=== PATIENT | male | born 1970 | race Caucasian/White ===

== ENCOUNTER → 2016-08-28 | Outpatient (CLI) | payer BC ==
[~2016-08-28] MED LIST: AGM875T PO; BPR150TCR PO; HYDR-757 PO; IBP800T PO; NAPR-243 PO; ORPH100T PO
--- OUTSIDE RECORDS SUMMARY | 2016-08-28 09:46 | XMS REPORT | Continuity of Care Document ---
Author Author [facility] Organization [facility] Address Unknown Phone Unavailable Care Team Providers Care Councilperson Name Role Phone KAVITHA TOMLINSON MD PCP Insurance Providers Payer Name Policy Number Subscriber Name Relationship [facility] [id number] Dave Archuleta Self / Same As Patient Advance Directives Directive Response Recorded Date/Time Advance Directives No 03/08/15 9:58am Health Care Power of [place] Machine Operator No 03/08/15 9:58am Organ Donor Yes 03/08/15 9:58am Resuscitation Status Full Code 03/08/15 9:58am Problems Medical Problems Problem Onset Date Status Biliary colic Unknown Active Abdominal pain Unknown Active Dog bite of left hand Unknown Active Sprain or strain of cervical spine Unknown Active Sprain or strain of cervical spine Unknown Active Medications Medication Dose Route Sig Days/Qty Instructions Order Date Discontinued Date Status Ibuprofen 800 Mg PO GIVE EVERY 8 HRS ON SCHEDULE PRN 30 Qty 11/01/12 08/01/13 Discontinued Bupropion HCl 150 Mg PO DAILY 30 Qty 08/01/13 03/08/15 Discontinued Amoxicillin/Clavulanate K 1 Tab PO TWICE A DAY 6 Qty 07/21/14 Discontinued Orphenadrine Citrate 100 Mg PO TWICE A DAY 10 Qty FOR MUSCLE SPASMS 03/08 Active Naproxen 1 Each PO BID PRN 10 Qty 03/08/15 Active Hydrocodone Bit/Acetaminophen 1 Ea PO EVERY 6 HOURS PRN SEVERE PAIN 20 Qty 03/08/15 Active Social History Social History Problem Response Recorded Date/Time Alcohol Use Denies Use 03/08/2015 9:58am Recreational Drug Use Y POT OCC 03/08/2015 9:58am Recent Foreign Travel No 03/08/2015 9:50am Recent Infectious Disease Exposure No 03/08/2015 9:50am Hospitalization with Isolation Denies 03/08/2015 9:50am Sexually Transmitted Disease No 03/08/2015 9:58am Smoking Status Current Everyday Smoker 03/08/2015 9:58am Query Response Start Date Stop Date Smoking Status Current Everyday Smoker Hospital Discharge Instructions No hospital discharge instructions. Plan of Care No plan of care. Functional Status No functional status results. Allergies, Adverse Reactions, Alerts Allergen Type Severity Reaction Status Last Updated No Known Drug Allergies Active 03/23/09 Immunizations Name Given Type Date of Influenza Vaccine 06/20/12 Historical Tetanus Booster (TDap) Unknown Historical Vital Signs Acute Vital Signs Vital Response Date/Time Temperature (Fahrenheit) 98.3 degrees F (97.6 - 99.5) Temperature (Calculated Celsius) 36.02683 degrees C (36.4 - 37.5) Pulse Rate (adult) 56 bpm (60 - 90) Respiratory Rate 20 bpm (12 - 24) O2 Sat by Pulse Oximetry 95 % (88 - 100) Blood Pressure 132/94 mm Hg Blood Pressure Mean 107 mm Hg Pain Pain Intensity 8 Height (Feet) 5 feet Height (Inches) 11 inches Height (Calculated Centimeters) 180.108811 cm Weight (Pounds) 235 pounds Weight (Calculated Kilograms) 106.195232 kilograms Calculated BMI 32.77 Results No known relevant diagnostic tests, laboratory data and/or discharge summary. Procedures No known history of procedures. Encounters Encounter Location Date/Time Departed Emergency Room [facility] 03/08/15 9:44am Recent Diagnosis
--- NOTE | 2016-08-28 17:27 | Diagnostic Imaging Report ---
PROCEDURE: US Gallbladder. TECHNIQUE: Multiple real-time grayscale images were obtained over the right upper quadrant in various projections. INDICATION: Abdominal pain. FINDINGS: The pancreas is largely obscured by bowel loops. The liver is hyperechoic and attenuates the ultrasound beam suggestive of fatty infiltration. No focal mass. The liver is slightly enlarged measuring 20 cm in craniocaudal diagonal measurements. The CBD is obscured. No intrahepatic biliary dilatation is demonstrated. The gallbladder demonstrates no stones, wall thickening or pericholecystic fluid. The right kidney is 10.5 cm in length with no hydronephrosis or focal lesion. No fluid collection in the upper right abdomen noted. The sonographic Maher's sign is reportedly negative. IMPRESSION: Enlarged fatty liver. No gallstones or evidence of cholecystitis. Dictated by: Dictated on workstation # [id number]
== END ==
LOC: RAD 09:43
PROVIDERS: ATTEND Internal Medicine
DX: R10.11 Right upper quadrant pain (principal); K76.0 Fatty (change of) liver, not elsewhere classified
CPT/HCPCS: 76705

== ENCOUNTER 2018-03-04 09:00 | Emergency (ER) | payer BC ==
[~2018-03-04] VITALS: Ht 180.3 cm; Wt 106.6 kg
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
[2018-03-04 09:39] LABS: BASOPHILS # (AUTO) 0.1 10^3/uL (0.0-0.1); BASOPHILS % (AUTO) 1 % (0-10); EOSINOPHILS # (AUTO) 0.2 10^3/uL (0.0-0.3); EOSINOPHILS % (AUTO) 2 % (0-10); HEMATOCRIT 45 % (40-54); HEMOGLOBIN 16.1 G/DL (13.3-17.7); LYMPHOCYTES # (AUTO) 2.2 X 10^3 (1.0-4.0); LYMPHOCYTES % (AUTO) 32 % (12-44); MEAN CORPUSCULAR HEMOGLOBIN 32 PG (25-34); MEAN CORPUSCULAR HGB CONC 36 G/DL (32-36); MEAN CORPUSCULAR VOLUME 91 FL (80-99); MEAN PLATELET VOLUME 11.4 FL (7.4-10.4); MONOCYTES # (AUTO) 0.4 X 10^3 (0.0-1.0); MONOCYTES % (AUTO) 6 % (0-12); NEUTROPHILS # (AUTO) 4.1 X 10^3 (1.8-7.8); NEUTROPHILS % (AUTO) 59 % (42-75); PLATELET COUNT 183 10^3/uL (130-400); RED CELL DISTRIBUTION WIDTH 13.3 % (10.0-14.5); WHITE BLOOD COUNT 6.9 10^3/uL (4.3-11.0)
[2018-03-04] MEDS ORDERED: ASPIRIN 81 MG CHEW (CHILDREN'S ASA) PO ONE (09:45)
[2018-03-04 09:52] LABS: INR 0.9 (0.8-1.4); PROTHROMBIN TIME PATIENT 12.3 SEC (12.2-14.7)
[2018-03-04] MEDS ORDERED: ESCI20TA PO (09:52)
[2018-03-04] MEDS ORDERED: FLUT1DIS28 IH (09:52)
[2018-03-04 09:57] LABS: ALANINE AMINOTRANSFERASE 69 U/L (0-55); ALBUMIN 4.5 GM/DL (3.2-4.5); ALKALINE PHOSPHATASE 84 U/L (40-136); BILIRUBIN,TOTAL 0.8 MG/DL (0.1-1.0); BUN/CREATININE RATIO 13; CALCIUM 9.7 MG/DL (8.5-10.1); CARBON DIOXIDE 24 MMOL/L (21-32); CHLORIDE 106 MMOL/L (98-107); CREATININE SERUM 0.82 MG/DL (0.60-1.30); GFR ESTIMATED > 60; GLUCOSE 186 MG/DL (70-105); MAGNESIUM 2.2 MG/DL (1.8-2.4); POTASSIUM 4.2 MMOL/L (3.6-5.0); SODIUM 139 MMOL/L (135-145); TOTAL PROTEIN 7.1 GM/DL (6.4-8.2)
[2018-03-04 10:04] LABS: MYOGLOBIN SERUM 25.3 NG/ML (10.0-92.0)
--- NOTE | 2018-03-04 10:34 | Diagnostic Imaging Report ---
INDICATION: Dizziness. COMPARISON: 06/13/2013 FINDINGS: 2 views of the chest obtained. Heart size is normal. The pulmonary vessels appear unremarkable. There is no pneumothorax, mediastinal widening or pleural fluid. Lungs are clear. IMPRESSION: Negative chest. Dictated by: Dictated on workstation # [id number]
--- NOTE | 2018-03-04 10:59 | Diagnostic Imaging Report ---
PROCEDURE: CT head without contrast. TECHNIQUE: Multiple contiguous axial images were obtained through the brain without the use of intravenous contrast. INDICATION: Syncope. COMPARISON: 03/08/2015. FINDINGS: The ventricles and sulci are within normal limits. No sulcal effacement, midline shift, or hemorrhage is detected. The cisterns are patent. The visualized paranasal sinuses are clear. IMPRESSION: No acute intracranial process is detected. Dictated by: Dictated on workstation # [id number]
[2018-03-04 12:09] LABS: AMPHETAMINE SCREEN, URINE NEGATIVE (NEGATIVE); BENZODIAZEPINES SCREEN URINE NEGATIVE (NEGATIVE); CANNABINOID SCREEN, URINE POSITIVE (NEGATIVE); COCAINE SCREEN URINE NEGATIVE (NEGATIVE); METHAMPHETAMINE SCREEN URINE S NEGATIVE (NEGATIVE)
[2018-03-04 12:10] LABS: BARBITURATE SCREEN URINE NEGATIVE (NEGATIVE); METHADONE STAT NEGATIVE (NEGATIVE); OPIATE SCREEN URINE NEGATIVE (NEGATIVE); OXYCODONE STAT NEGATIVE (NEGATIVE); PROPOXYPHENE STAT NEGATIVE (NEGATIVE); TRICYCLIC ANTIDEPRESSANTS SCRE NEGATIVE (NEGATIVE)
--- NOTE | 2018-03-04 12:34 | ED General ---
General Chief Complaint: Dizziness/Syncope Stated Complaint: SYNCOPAL EPISODE Source of Information: Patient Exam Limitations: No Limitations History of Present Illness Date Seen by Provider: Mar 04, 2018 Time Seen by Provider: 09:20 Initial Comments This 47-year-old gentleman presents to the emergency room after having a syncopal episode. The episode was preceded by a paroxysm of coughing. This episode was witnessed by his daughter and she reports he had tremoring activity and was unresponsive. After the episode he vomited and was shaking and disoriented. He still feels disoriented now although he is alert and oriented on exam. He reports this has happened 6-8 times in the last few years and is usually preceded by a coughing episode. He also reports having an episode of significant lightheadedness after working in the heat last Wednesday. Patient denies any recent alcohol use and rarely drinks alcohol. He does admit to marijuana use and does admit to using marijuana just prior to the coughing episode. He reports smoking marijuana tends to make him cough intensely. He states his chest feels slightly tight but is not painful. His primary care provider is Dr. Dean. Allergies and Home Medications Allergies Coded Allergies: No Known Drug Allergies (Unverified , 03/23/09) Home Medications Hydrocodone Bit/Acetaminophen 1 Each Tablet, 1 EA PO Q6H PRN for SEVERE PAIN Prescribed by: NELIDA ZAYAS on 03/08/15 1257 Naproxen 500 Mg Tablet, 1 EACH PO BID PRN Prescribed by: NELIDA ZAYAS on 03/08/15 1147 Orphenadrine Citrate 100 Mg Tablet.sa, 100 MG PO BID FOR MUSCLE SPASMS Prescribed by: NELIDA ZAYAS on 03/08/15 1147 Patient Home Medication List Home Medication List Reviewed: Yes Review of Systems Constitutional: no symptoms reported EENTM: no symptoms reported Respiratory: no symptoms reported Cardiovascular: see HPI Gastrointestinal: see HPI Genitourinary: no symptoms reported Musculoskeletal: no symptoms reported Skin: no symptoms reported Psychiatric/Neurological: See HPI Hematologic/Lymphatic: No Symptoms Reported Immunological/Allergic: no symptoms reported Past Bleuhdc-Eapvay-Avioll Hx Past Med/Social Hx: Reviewed and Corrections made Patient Social History Alcohol Use: Occasionally Uses Alcohol Beverage of Choice: Rum Recreational Drug Use: Yes (1-2ppd smoker, THC ) Smoking Status: Current Everyday Smoker Type Used: Cigarettes Recent Foreign Travel: No Contact w/Someone Who Travel: No Recent Hopitalizations: No Immunizations Up To Date Tetanus Booster (TDap): Unknown Date of Influenza Vaccine: Jun 20, 2012 Seasonal Allergies Seasonal Allergies: Yes Past Medical History Surgeries: Yes (BI LAT ROTATOR CUFF ) Orthopedic Respiratory: Yes COPD Cardiac: No Neurological: No Reproductive Disorders: No Sexually Transmitted Disease: No Genitourinary: No Gastrointestinal: No Musculoskeletal: No Endocrine: No HEENT: No Cancer: No Psychosocial: No Integumentary: No Blood Disorders: No Family Medical History Reviewed Nursing Family Hx No Pertinent Family Hx Physical Exam Vital Signs Vital Signs - First Documented 03/04/18 03/04/18 09:35 12:44 Temp 96.9 Pulse 63 Resp 18 B/P (MAP) 121/81 (94) Pulse Ox 97 O2 Delivery Room Air Capillary Refill : Height, Weight, BMI Height: 5'11" Weight: 235lbs. oz. 106.950444ax; BMI Method:Stated General Appearance: No Apparent Distress, WD/WN HEENT: PERRL/EOMI, Normal ENT Inspection Neck: Normal Inspection Respiratory: Lungs Clear, Normal Breath Sounds, No Accessory Muscle Use, No Respiratory Distress Cardiovascular: Regular Rate, Rhythm, No Edema, No Murmur, Normal Peripheral Pulses Gastrointestinal: Normal Bowel Sounds, Non Tender, Soft Extremity: Normal Capillary Refill, Normal Inspection, No Pedal Edema Neurologic/Psychiatric: Alert, Oriented x3, No Motor/Sensory Deficits, Normal Mood/Affect, affiliate marketing coordinator II-XII Norm as Tested Skin: Normal Color, Warm/Dry Progress/Results/Core Measures Suspected Sepsis SIRS Temperature: Pulse: Respiratory Rate: Laboratory Tests 03/04/18 09:30: White Blood Count 6.9 Blood Pressure / Mean: Laboratory Tests 03/04/18 09:30: Platelet Count 183 03/04/18 09:32: Creatinine 0.82, INR Comment 0.9, Total Bilirubin 0.8 Results/Orders Lab Results Laboratory Tests Test 03/04/18 09:30 03/04/18 09:32 03/04/18 11:30 Range/Units White Blood Count 6.9 4.3-11.0 10^3/uL Red Blood Count 5.00 4.35-5.85 10^6/uL Hemoglobin 16.1 13.3-17.7 G/DL Hematocrit 45 40-54 % Mean Corpuscular Volume 91 80-99 FL Mean Corpuscular Hemoglobin 32 25-34 PG Mean Corpuscular Hemoglobin Concent 36 32-36 G/DL Red Cell Distribution Width 13.3 10.0-14.5 % Platelet Count 183 130-400 10^3/uL Mean Platelet Volume 11.4 H 7.4-10.4 FL Neutrophils (%) (Auto) 59 42-75 % Lymphocytes (%) (Auto) 32 12-44 % Monocytes (%) (Auto) 6 0-12 % Eosinophils (%) (Auto) 2 0-10 % Basophils (%) (Auto) 1 0-10 % Neutrophils # (Auto) 4.1 1.8-7.8 X 10^3 Lymphocytes # (Auto) 2.2 1.0-4.0 X 10^3 Monocytes # (Auto) 0.4 0.0-1.0 X 10^3 Eosinophils # (Auto) 0.2 0.0-0.3 10^3/uL Basophils # (Auto) 0.1 0.0-0.1 10^3/uL Prothrombin Time 12.3 12.2-14.7 SEC INR Comment 0.9 0.8-1.4 Activated Partial Thromboplast Time 25 24-35 SEC Sodium Level 139 135-145 MMOL/L Potassium Level 4.2 3.6-5.0 MMOL/L Chloride Level 106 98-107 MMOL/L Carbon Dioxide Level 24 21-32 MMOL/L Anion Gap 9 5-14 MMOL/L Blood Urea Nitrogen 11 7-18 MG/DL Creatinine 0.82 0.60-1.30 MG/DL Estimat Glomerular Filtration Rate > 60 BUN/Creatinine Ratio 13 Glucose Level 186 H 70-105 MG/DL Calcium Level 9.7 8.5-10.1 MG/DL Magnesium Level 2.2 1.8-2.4 MG/DL Total Bilirubin 0.8 0.1-1.0 MG/DL Aspartate Amino Transf (AST/SGOT) 44 H 5-34 U/L Alanine Aminotransferase (ALT/SGPT) 69 H 0-55 U/L Alkaline Phosphatase 84 40-136 U/L Myoglobin 25.3 10.0-92.0 NG/ML Troponin I < 0.30 <0.30 NG/ML Total Protein 7.1 6.4-8.2 GM/DL Albumin 4.5 3.2-4.5 GM/DL Urine Opiates Screen NEGATIVE NEGATIVE Urine Oxycodone Screen NEGATIVE NEGATIVE Urine Methadone Screen NEGATIVE NEGATIVE Urine Propoxyphene Screen NEGATIVE NEGATIVE Urine Barbiturates Screen NEGATIVE NEGATIVE Ur Tricyclic Antidepressants Screen NEGATIVE NEGATIVE Urine Phencyclidine Screen NEGATIVE NEGATIVE Urine Amphetamines Screen NEGATIVE NEGATIVE Urine Methamphetamines Screen NEGATIVE NEGATIVE Urine Benzodiazepines Screen NEGATIVE NEGATIVE Urine Cocaine Screen NEGATIVE NEGATIVE Urine Cannabinoids Screen POSITIVE H NEGATIVE My Orders Orders - REJI YAO MD Cbc With Automated Diff (03/04/18:33) Magnesium (03/04/18 09:33) Chest 1 View, Ap/Pa Only (03/04/18 09:33) Ekg Tracing (03/04/18:33) Cardiac Profile 1 (03/04/18:33) Comprehensive Metabolic Panel (03/04/18:33) Myoglobin Serum (03/04/18:33) Protime With Inr (03/04/18:33) Partial Thromboplastin Time (03/04/18:33) O2 (03/04/18 09:33) Monitor-Rhythm Ecg Trace Only (03/04/18 09:33) Aspirin Chewable Tablet (Baby Aspirin Ch (03/04/18 09:45) Saline Lock/Iv-Start (03/04/18 09:33) Drug Screen Stat (Urine) (03/04/18 09:33) Ct Head Wo (03/04/18 10:34) Medications Given in ED Vital Signs/I&O Capillary Refill : Progress Note : Progress Note Patient was given aspirin. Workup was unremarkable. Patient was feeling better and was dismissed to outpatient follow-up. I suspect patient is either having vasovagal or hypoxic episodes associated with coughing. I strongly advised him to quit smoking, especially marijuana. Patient has an Advair inhaler which he uses infrequently. He also has an albuterol rescue inhaler which she rarely uses. He was encouraged to use the Advair routinely and use his albuterol as needed for coughing and shortness of air. ECG Initial ECG Impression Date: Mar 04, 2018 Initial ECG Impression Time: 09:41 Initial ECG Rate: 63 Initial ECG Rhythm: Normal Sinus Comment Sinus rhythm with first-degree AV block. No ST elevation or depression. No abnormal intervals or axis deviation. Diagnostic Imaging Diagonstic Imaging: CT Plain Films/CT/US/NM/MRI: head Comments CT head viewed by me and report reviewed. See report below: NAME: MARKEL ARCHULETA [facility] REC#: [id number] PT STATUS: [facility] : 1970 PHYSICIAN: REJI YAO MD ADMIT DATE: 03/04/18/ER Signed Date of Exam: 03/04/18 CT HEAD WO PROCEDURE: CT head without contrast. TECHNIQUE: Multiple contiguous axial images were obtained through the brain without the use of intravenous contrast. INDICATION: Syncope. COMPARISON: 03/08/2015. FINDINGS: The ventricles and sulci are within normal limits. No sulcal effacement, midline shift, or hemorrhage is detected. The cisterns are patent. The visualized paranasal sinuses are clear. IMPRESSION: No acute intracranial process is detected. Dictated by: Dictated on workstation # [id number] Dict: 03/04/18 1056 Trans: 03/04/18 1509 Interpreted by: JESSICA BEE MD Electronically signed by: JESSICA BEE MD 03/04/18 1509 Diagonstic Imaging: Xray Plain Films/CT/US/NM/MRI: chest Comments Chest x-ray viewed by me and report reviewed. See report below: NAME: MARKEL ARCHULETA [facility] REC#: [id number] PT STATUS: [facility] : 1970 PHYSICIAN: REJI YAO MD ADMIT DATE: 03/04/18/ER Signed Date of Exam: 03/04/18 CHEST 1 VIEW, AP/PA ONLY INDICATION: Dizziness. COMPARISON: 06/13/2013 FINDINGS: 2 views of the chest obtained. Heart size is normal. The pulmonary vessels appear unremarkable. There is no pneumothorax, mediastinal widening or pleural fluid. Lungs are clear. IMPRESSION: Negative chest. Dictated by: Dictated on workstation # [id number] Dict: 03/04/18 1016 Trans: 03/04/18 1253 Interpreted by: AIYANA GIBSON DO Electronically signed by: AIYANA GIBSON DO 03/04/18 1253 Departure Impression Primary Impression: Syncope Qualified Codes: R55 - Syncope and collapse Additional Impressions: Cough Tremor Disposition: 01 HOME, SELF-CARE Condition: Improved Departure-Patient Inst. Decision time for Depature: 12:25 Referrals: KAVITHA DEAN MD (PCP/Family) Primary Care Physician Patient Instructions: Syncope (Fainting) (DC) Add. Discharge Instructions: Drink plenty of clear liquids. Discontinue use of marijuana and work toward quitting smoking. Use your Advair daily for maintenance. Use your albuterol up to 2 puffs every 4 hours as needed for uncontrolled coughing, shortness of breath, or wheezing. Follow-up with Dr. Dean as soon as possible. Return to care if symptoms worsen. All discharge instructions reviewed with patient and/or family. Voiced understanding. Copy Copies To 1: KAVITHA DEAN MD, JOSHUA T MD Mar 04, 2018 12:33
[2018-03-04 12:44] VITALS: BP 121/81
== END 2018-03-04 12:44 | disposition home or self-care (01) ==
LOC: EDUNIT# 09:00 → ER 09:03
DX: R55 Syncope and collapse (principal); R05 Cough; R25.1 Tremor, unspecified; J44.9 Chronic obstructive pulmonary disease, unspecified; F12.10 Cannabis abuse, uncomplicated; F17.210 Nicotine dependence, cigarettes, uncomplicated
CPT/HCPCS: 36415; 70450; 71045; 80053; 80306; 83735; 83874; 84484; 85025; 85610; 85730; 93005; 93041

== ENCOUNTER → 2018-04-20 | Outpatient (CLI) | payer BC ==
[~2018-04-20] MED LIST changes: +ESCI20TA PO; +FLUT1DIS28 IH
== END ==
LOC: CARD 13:38
PROVIDERS: ATTEND Internal Medicine Interventional Cardiology
DX: R55 Syncope and collapse (principal)
CPT/HCPCS: 93225; 93226

== ENCOUNTER 2018-04-25 12:03 | Outpatient (CLI) | payer BC ==
[2018-04-25] VITALS (29 sets, daily range): BP systolic 101–123; BP diastolic 66–86
[~2018-04-25] VITALS: Ht 180.3 cm; Wt 112.0 kg
[2018-04-25] MEDS ORDERED: NS IV 1000 ML 1,000 ML ONE (12:13)
[2018-04-25] MEDS ORDERED: ATROPINE INJECTION 1 MG/10 ML SYR (ABBOTT) ONE (12:13)
[2018-04-25] MEDS ORDERED: NS IV 1000 ML 1,000 ML IV SCH (12:45)
--- NOTE | 2018-04-25 13:34 | Cardiology Tilt Table Test ---
Cardiology-Tilt Table Test Tilt Table Test Date 04/25/18 Baseline Vitals Vital Signs Date Time Temp Pulse Resp B/P (MAP) Pulse Ox O2 Delivery O2 Flow Rate FiO2 04/25/18 12:41 97.0 64 16 123/82 (96) 94 Room Air Vital Signs VS - Last 72 Hours, by Label 04/25/18 04/25/18 04/25/18 04/25/18 12:41 12:48 12:50 12:50 Temp 97.0 Pulse 64 75 81 75 Resp 16 16 16 16 B/P (MAP) 123/82 (96) 119/77 (91) 118/77 (91) 110/78 (89) Pulse Ox 94 95 95 95 O2 Delivery Room Air Room Air Room Air Room Air 04/25/18 04/25/18 04/25/18 04/25/18 12:51 12:52 12:53 12:54 Pulse 78 74 73 75 Resp 16 16 16 16 B/P (MAP) 118/84 (95) 114/76 (89) 110/80 (90) 118/78 (91) Pulse Ox 95 95 95 95 O2 Delivery Room Air Room Air Room Air Room Air 04/25/18 04/25/18 04/25/18 04/25/18 12:55 12:56 12:57 12:58 Pulse 74 72 73 71 Resp 16 16 16 16 B/P (MAP) 121/74 (90) 116/78 (91) 116/80 (92) 114/82 (93) Pulse Ox 95 95 95 95 O2 Delivery Room Air Room Air Room Air Room Air 04/25/18 04/25/18 04/25/18 04/25/18 12:59 13:00 13:02 13:03 Pulse 78 76 62 63 Resp 16 16 16 16 B/P (MAP) 116/82 (93) 115/86 (96) 106/68 (81) 113/74 (87) Pulse Ox 95 95 95 95 O2 Delivery Room Air Room Air Room Air Room Air 04/25/18 04/25/18 04/25/18 04/25/18 13:04 13:05 13:06 13:08 Pulse 69 73 73 85 Resp 16 16 16 16 B/P (MAP) 120/79 (93) 116/74 (88) 121/68 (85) 110/72 (85) Pulse Ox 95 95 95 95 O2 Delivery Room Air Room Air Room Air Room Air 04/25/18 04/25/18 04/25/18 04/25/18 13:10 13:11 13:13 13:14 Pulse 85 86 77 75 Resp 16 16 16 16 B/P (MAP) 105/76 (86) 109/79 (89) 101/79 (86) 114/73 (87) Pulse Ox 95 95 95 95 O2 Delivery Room Air Room Air Room Air Room Air 04/25/18 04/25/18 04/25/18 04/25/18 13:16 13:17 13:19 13:20 Pulse 79 78 76 75 Resp 16 16 16 16 B/P (MAP) 119/68 (85) 110/68 (82) 115/80 (92) 117/66 (83) Pulse Ox 95 95 95 95 O2 Delivery Room Air Room Air Room Air Room Air 04/25/18 04/25/18 13:22 13:28 Pulse 76 78 Resp 16 16 B/P (MAP) 110/67 (81) 110/67 Pulse Ox 95 95 O2 Delivery Room Air Room Air Patient was tilted to 75 degrees for [10] minutes, then returned to supine position, given [2] sublingual nitroglycerin tablets, then tilted again to 75 degrees for [15] minutes. During test, patient was: asymptomatic In Conclusion;: Negative Tilt Table Test Yolanda BEY MD Apr 25, 2018 1:34 pm
== END 2018-04-25 13:35 | disposition home or self-care (01) ==
LOC: CARD 12:03
PROVIDERS: ATTEND Internal Medicine Interventional Cardiology
DX: R55 Syncope and collapse (principal); R06.02 Shortness of breath; E78.5 Hyperlipidemia, unspecified; E11.9 Type 2 diabetes mellitus without complications; Z72.0 Tobacco use
CPT/HCPCS: 93660

== ENCOUNTER → 2018-04-27 | Outpatient (CLI) | payer BC | LOC: CARD 13:45 | PROVIDERS: ATTEND Internal Medicine Interventional Cardiology | DX: R06.02 Shortness of breath (principal); R55 Syncope and collapse; E78.5 Hyperlipidemia, unspecified; E11.9 Type 2 diabetes mellitus without complications; Z72.0 Tobacco use | CPT/HCPCS: 93306 ==

== ENCOUNTER 2018-05-10 09:00 | Outpatient (RCR) | payer BC ==
[2018-04-28 09:23] VITALS: BP 146/76
[2018-04-28 15:11] VITALS: BP 106/67
--- NOTE | 2018-04-28 15:11 | Cardiology Stress Test Report ---
Stress Test Report Type of NM Stress Test: Test Type: LEXISCAN 0.4MG/5ML Date of Procedure/Referring: Date of Procedure: Apr 28, 2018 PCP Yolanda Ventura MD Admitting Physician Duke Dean MD Indications: shortness of breath, syncope. Baseline Heart Rate: 64 Baseline Blood Pressure: Blood Pressure Systolic: 106 Blood Pressure Diastolic: 67 Baseline EKG: Baseline EKG: sinus rhythm Summary & Conclusion: Summary: The patient was brought to the stress lab after informed consent was taken. Stress test was performed according to the Lexiscan protocol. 0.4 mg of IV Lexiscan was given. Low-grade exercise was performed. Baseline EKG showed sinus rhythm at 64BPM. Initial blood pressure was 106/67mmHg. Maximum heart rate was 100bpm and blood pressure 148/81mmHg. Patient did not have any chest pain, arrhythmias or ST segment changes during the stress test. 10.83mCi of Myoview were given for rest imaging and 31.1mCi of Myoview given for stress imaging. Transient ischemic dilatation score 1.05, EF 63percent. Normal wall motion. Normal myocardial perfusion imaging during rest and stress. Conclusion: Pharmacological stress test was negative for ischemia. Normal LV function with no wall motion abnormalities. Normal myocardial perfusion imaging during rest and stress. Yolanda VENTURA MD Apr 28, 2018 3:11 pm
[~2018-05-10 09:00] MED LIST changes: +CATHETER FLUSH 10 ML SYR IV PRN; +REGADENOSON 0.4 MG/5 ML SYR (LEXISCAN) IV ONE
== END 2018-05-15 | disposition home or self-care (01) ==
LOC: CARD 09:00
PROVIDERS: ATTEND Internal Medicine Interventional Cardiology
DX: E11.9 Type 2 diabetes mellitus without complications (principal); E78.5 Hyperlipidemia, unspecified; R06.02 Shortness of breath; R55 Syncope and collapse; Z72.0 Tobacco use
CPT/HCPCS: 93270

== ENCOUNTER 2018-05-23 11:30 | Outpatient (RCR) | payer BC ==
[~2018-05-23 11:30] MED LIST changes: -CATHETER FLUSH 10 ML SYR IV PRN; -REGADENOSON 0.4 MG/5 ML SYR (LEXISCAN) IV ONE
== END 2018-08-14 ==
LOC: CARD 11:30
PROVIDERS: ATTEND Internal Medicine Interventional Cardiology
DX: E11.9 Type 2 diabetes mellitus without complications (principal); E78.5 Hyperlipidemia, unspecified; R06.02 Shortness of breath; R55 Syncope and collapse; Z72.0 Tobacco use